=== PATIENT | male | born 1995 | race Caucasian/White ===

== ENCOUNTER 2017-03-30 12:20 | Emergency (ER) | payer OTHER ==
[~2017-03-30] VITALS: Ht 177.8 cm; Wt 72.6 kg
[~2017-03-30 12:20] MED LIST: ADVIL200 MG PO; AMOXICILLIN500 MG PO; AUGMENTIN 875875 MG PO; B-1100 MG PO; CIPRO500 MG PO; CLARITIN10 MG PO; KEFLEX500 MG PO; LIBRIUM10 MG PO; LOMOTIL 0.025 M1 TA1 PO; MOTRIN600 MG PO; MOTRIN800 MG PO; MULTIPLE VITAMI1 TAB PO; NATURE'S BLEND F1 MG PO; ZITHROMAX Z PA250 MG PO; ZOFRAN ODT4 MG SL; ZOFRAN4 MG PO
[2017-03-30 12:24] VITALS: BP 116/80
[2017-03-30 13:00] LABS: BASO % 0.3 % (0.0-1.0); EOS # 0.2 10*3/uL (0.0-0.4); EOS % 1.2 % (1.0-4.0); HEMATOCRIT 45.3 % (42.0-52.0); HEMOGLOBIN 14.9 g/dl (14.0-18.0); IG # 0.1 10*3/uL (0.0-0.1); LYMPH # 1.5 10*3/uL (1.3-4.4); LYMPH % 11.1 % (27.0-41.0); MEAN CELL VOLUME 94.8 fl (80.0-94.0); MEAN CORPUSCULAR HGB 31.2 pg (27.0-31.0); MEAN CORPUSCULAR HGB CONC 32.9 g/dl (33.0-37.0); MEAN PLATELET VOLUME 8.6 fl (9.6-12.3); MONO # 1.5 10*3/uL (0.1-1.0); MONO % 11.2 % (3.0-9.0); NEUT % 75.7 % (47.0-73.0); PLATELET COUNT AUTOMATED 235 10*3/uL (130-400); RED BLOOD COUNT 4.78 10*6/uL (4.50-5.90); RED CELL DISTRI WIDTH 12.5 % (0-14.5); WHITE BLOOD COUNT 13.2 10*3/uL (4.8-10.8)
[2017-03-30 13:18] LABS: BUN 9 mg/dl (7-24); CARBON DIOXIDE 31 mmol/L (21-32); CHLORIDE 103 mmol/L (98-107); EST GLOM FILT AFRICAN AMERICAN > 60 ml/min; GLUCOSE 95 mg/dL (65-99); POTASSIUM 5.4 mmol/L (3.5-5.1); SODIUM 139 mmol/L (136-145); TROPONIN I < 0.015 ng/ml (<0.045)
[2017-03-30] MEDS ORDERED: IBU800 M1 PO (14:14)
[2017-03-30] MEDS ORDERED: PREDNISONE50 MG PO (14:14)
== END 2017-03-30 14:44 | disposition home or self-care (01) ==
LOC: ED 12:20
PROVIDERS: Family Medicine
DX: M94.0 Chondrocostal junction syndrome [Tietze] (principal); F17.210 Nicotine dependence, cigarettes, uncomplicated; F12.90 Cannabis use, unspecified, uncomplicated; Z88.1 Allergy status to other antibiotic agents

== ENCOUNTER 2017-09-09 10:23 | Emergency (ER) | payer OTHER ==
[~2017-09-09] VITALS: Ht 175.2 cm; Wt 68.0 kg
[~2017-09-09 10:23] MED LIST changes: +IBU800 M1 PO; +PREDNISONE50 MG PO
[2017-09-09 11:15] LABS: BASO # 0.1 10*3/uL (0.0-0.1); BASO % 0.3 % (0.0-1.0); EOS # 0.1 10*3/uL (0.0-0.4); EOS % 0.7 % (1.0-4.0); HEMATOCRIT 47.6 % (42.0-52.0); HEMOGLOBIN 15.7 g/dl (14.0-18.0); LYMPH # 2.1 10*3/uL (1.3-4.4); MEAN CELL VOLUME 91.5 fl (80.0-94.0); MEAN CORPUSCULAR HGB 30.2 pg (27.0-31.0); MEAN PLATELET VOLUME 9.6 fl (9.6-12.3); MONO # 0.6 10*3/uL (0.1-1.0); NEUT # 15.8 10*3/uL (2.3-7.9); NEUT % 84.3 % (47.0-73.0); PLATELET COUNT AUTOMATED 275 10*3/uL (130-400); RED CELL DISTRI WIDTH 13.3 % (0-14.5); WHITE BLOOD COUNT 18.7 10*3/uL (4.8-10.8)
[2017-09-09 11:43] LABS: ALKALINE PHOSPHATASE 115 U/L (45-117); BUN 15 mg/dl (7-24); CHLORIDE 105 mmol/L (98-107); CREATININE 0.97 mg/dL (0.70-1.30); MAGNESIUM 1.8 mg/dL (1.5-2.1); POTASSIUM 4.1 mmol/L (3.5-5.1); SGOT/AST 300 IU/L (3-35); SGPT/ALT 690 U/L (12-78); SODIUM 140 mmol/L (136-145); TOTAL PROTEIN 8.5 gm/dL (6.4-8.2)
[2017-09-09 11:45] LABS: TROPONIN I < 0.015 ng/ml (<0.045)
[2017-09-09 12:24] LABS: URINE AMPHETAMINES < 1000 (1000ng/ml); URINE BARBITURATES < 200 (200ng/ml); URINE BENZODIAZEPINES < 200 (200ng/ml); URINE CANNABINOIDS (THC) > 50 (50ng/ml); URINE COCAINE < 300 (300ng/ml); URINE METHADONE < 300 (300ng/ml); URINE OPIATES < 300 (300ng/ml)
[2017-09-09 12:29] LABS: BILIRUBIN NEGATIVE (NEGATIVE); BLOOD TRACE-INTACT (NEGATIVE); CLARITY SL CLOUDY (CLEAR); COLOR YELLOW (YELLOW); GLUCOSE NEGATIVE (NEGATIVE); KETONE 3+ (NEGATIVE); LEUKO ESTERASE NEGATIVE (NEGATIVE); NITRITE NEGATIVE (NEGATIVE); PH 5.5 (5.0-9.0); SPECIFIC GRAVITY >= 1.030 (1.005-1.030); UROBILINOGEN 0.2 E.U./dl (0.2-1.0)
[2017-09-09 12:29] LABS: URINE PHENCYCLIDINE < 25 (25ng/ml)
[2017-09-09 12:44] LABS: BACTERIA TRACE; MUCOUS TRACE
[2017-09-09 12:48] VITALS: BP 122/59
[2017-09-10 06:13] LABS: HEPATITIS B SURFACE AG Negative (Negative); HEPATITIS C VIRUS ANTIBODY 0.9 s/co (0.0-0.9)
== END 2017-09-09 14:50 | disposition home or self-care (01) ==
LOC: ED 10:23
PROVIDERS: Nurse Practitioner Family
DX: D72.829 Elevated white blood cell count, unspecified (principal); R94.5 Abnormal results of liver function studies; F17.200 Nicotine dependence, unspecified, uncomplicated; E16.2 Hypoglycemia, unspecified; Z79.899 Other long term (current) drug therapy; Z88.1 Allergy status to other antibiotic agents

== ENCOUNTER 2018-03-29 14:27 | Emergency (ER) | payer SELFPAY ==
[2018-03-29 14:55] VITALS: BP 107/72
== END 2018-03-29 14:56 | disposition home or self-care (01) ==
LOC: ED 14:27
DX: T50.991A Poisoning by other drugs, medicaments and biological substances, accidental (unintentional), initial encounter (principal); Z79.899 Other long term (current) drug therapy; Z88.1 Allergy status to other antibiotic agents; Y92.9 Unspecified place or not applicable

== ENCOUNTER 2020-08-13 01:34 | Emergency (ER) | payer SELFPAY ==
[~2020-08-13] VITALS: Ht 175.2 cm; Wt 68.0 kg
[2020-08-13] MEDS ORDERED: VITAMIN C500 M4 PO (02:00)
[2020-08-13 04:15] VITALS: BP 108/59
[2020-08-13 08:20] LABS: URINE AMPHETAMINES < 1000 (1000ng/ml); URINE BARBITURATES < 200 (200ng/ml); URINE BENZODIAZEPINES > 200 (200ng/ml); URINE CANNABINOIDS (THC) > 50 (50ng/ml); URINE COCAINE < 300 (300ng/ml); URINE METHADONE < 300 (300ng/ml); URINE OPIATES < 300 (300ng/ml)
[2020-08-13 08:21] LABS: URINE PHENCYCLIDINE < 25 (25ng/ml)
[2020-08-13 08:25] LABS: BILIRUBIN NEGATIVE; CLARITY CLEAR (CLEAR); COLOR YELLOW (YELLOW); GLUCOSE NEGATIVE; KETONE NEGATIVE
[2020-08-13 08:26] LABS: BLOOD NEGATIVE (NEGATIVE); LEUKO ESTERASE NEGATIVE (NEGATIVE); NITRITE NEGATIVE (NEGATIVE); SPECIFIC GRAVITY <= 1.005 (1.001-1.030); UROBILINOGEN 0.2 E.U./dl (0.0-1.0)
== END 2020-08-13 08:23 | disposition home or self-care (01) ==
LOC: ED 01:34
PROVIDERS: Emergency Medicine Emergency Medical Services
DX: Z04.1 Encounter for examination and observation following transport accident (principal); Z88.8 Allergy status to other drugs, medicaments and biological substances; Z79.899 Other long term (current) drug therapy

== ENCOUNTER → 2021-10-22 | Outpatient (CLI) | payer OTHER ==
[~2021-10-22] MED LIST changes: +VITAMIN C500 M4 PO
== END | disposition home or self-care (01) ==
LOC: COVID19 15:07
PROVIDERS: ATTEND Internal Medicine
DX: Z11.52 Encounter for screening for COVID-19 (principal)